=== PATIENT | male | born 1945 | race Two or more races ===

== ENCOUNTER → 2023-03-17 | Outpatient (CLI) | payer OTHER | END | disposition home or self-care (01) | LOC: LAB 12:20 | PROVIDERS: ATTEND Urology | DX: N40.1 Benign prostatic hyperplasia with lower urinary tract symptoms (principal) | CPT/HCPCS: 84153 ==

== ENCOUNTER 2023-08-25 08:37 | Inpatient (IN) | payer MEDICARE, OTHER ==
[2023-08-19 15:42] LABS: Basophils # (auto) 0.1 10 ^3/uL (0-0.2); Basophils % (auto) 0.9 % (0.0-2.0); Eosinophils # (auto) 0.3 10 ^3/uL (0-0.8); Eosinophils % (auto) 2.6 % (0.0-7.0); Hematocrit 46.7 % (41.0-53.0); Hemoglobin 15.7 g/dL (13.5-17.5); Lymphocytes # (auto) 1.4 10 ^3/uL (0.4-5.4); Lymphocytes % (auto) 12.5 % (10.0-50.0); Mean Corpuscular Hemoglobin 30.6 pg (28.0-32.0); Mean Corpuscular Hgb Conc. 33.7 g/dL (32.0-36.0); Monocytes # (auto) 1.5 10 ^3/uL (0-1.3); Monocytes % (auto) 14.1 % (0.0-12.0); Neutrophils # (auto) 7.6 10 ^3/uL (1.6-8.6); Neutrophils % (auto) 69.9 % (37.0-80.0); Nucleated Red Blood Cells % 0.1 %; Red Blood Cells 5.13 10^6/uL (4.5-5.90); Red Cell Distribution Width 13.5 % (11.8-14.3); White Blood Cell 10.9 10^3/uL (4.4-10.8)
[2023-08-19 15:52] LABS: INR 1.12 (0.9-1.15); Partial Thromboplastin Time 30.8 SEC (24.5-34.5); Prothrombin Time 11.7 sec (9.3-11.8)
[2023-08-19 16:06] LABS: Alanine Aminotransferase 33 U/L (7-40); Albumin 3.8 g/dL (3.2-4.8); Alkaline Phosphatase 174 U/L (46-116); Anion Gap 7 (5-15); Aspartate Aminotransferase 25 U/L (13-40); BUN/Creatinine Ratio 12.7 (10.0-20.0); Blood Urea Nitrogen 13 mg/dL (9-23); Calcium 9.6 mg/dL (8.7-10.4); Carbon Dioxide 26 mmol/L (20-30); Chloride 101 mmol/L (98-107); Glucose 386 mg/dL (74-106); Potassium 4.3 mmol/L (3.5-5.1); Sodium 134 mmol/L (136-145)
[2023-08-19 16:07] LABS: Bilirubin, Total 0.7 mg/dL (0.2-1.0); Total Protein 7.3 g/dL (5.7-8.2)
[2023-08-22 15:17] LABS: Urine Bacteria NONE SEEN /hpf (None Seen); Urine Blood 1+ /uL (Negative); Urine Budding Yeast LOADED /hpf (None Seen); Urine Clarity CLOUDY (Clear); Urine Color Yellow (Yellow); Urine Mucus FEW (None Seen); Urine Protein, UAD 1+ (Negative); Urine Specific Gravity 1.021 (1.001-1.035); Urine Urobilinogen Normal (Negative); Urine WBC 524 /hpf (0 - 3); Urine WBC Clumps PRESENT /hpf (None Seen); Urine pH 5.5 (5.0-8.0)
[~2023-08-25] VITALS: Ht 188 cm; Wt 100.8 kg
[~2023-08-25 08:37] MED LIST: ASPI81CH59 PO; ATOR20TA PO; BISA10SU45 RE; CARV3.1240 PO; CLON0.1T PO; CLOP75TA70 PO; DICL1GEL59 EX; FLEETMIN PR; INSU100I52 IJ; MAGN400S25 PO; MULT-1018 PO; ZOFR4T PO
[2023-08-25] MEDS ORDERED: PROPOFOL 10 MG/ML 20 ML IV ONE ×2 (09:00→11:00)
[2023-08-25] MEDS ORDERED: LIDOCAINE 2% (LOCAL ANESTH.) PF 5ml SDV ONE (09:00)
[2023-08-25] MEDS ORDERED: GLYCOPYRROLATE 0.2 MG/ML 1ML VIAL ONE (09:00)
[2023-08-25] MEDS ORDERED: DexAMETHasone SOD PHOS 10MG/1ML VIAL INJ ONE (09:00)
[2023-08-25] MEDS ORDERED: ONDANSETRON HCL 4 MG/2 ML VIAL ONE (09:00)
[2023-08-25] MEDS ORDERED: VANCOMYCIN HCL 1000 MG VL ONE (09:17)
[2023-08-25] MEDS ORDERED: ePHEDrine SULFATE 50 MG/ML AMP ONE (10:05)
[2023-08-25] MEDS ORDERED: SODIUM CHLORIDE LOCK 10 ML ONE (10:05)
[2023-08-25] MEDS ORDERED: fentaNYL CITRATE 100 MCG/2 ML VL ONE (11:03)
[2023-08-25] MEDS ORDERED: NITROGLYCERIN 0.4 MG SL TAB SL PRN (11:30)
[2023-08-25] MEDS ORDERED: VANCOMYCIN PER PHARMACY 0 MG IV SCH (11:30)
[2023-08-25] MEDS ORDERED: MORPHINE SULFATE INJ 2 MG/ml SYRG IV PRN (11:30)
[2023-08-25 11:37] VITALS: O2SAT 99
[2023-08-25] MEDS ORDERED: NALOXONE HCL 0.4 MG/ML VIAL IV PRN (11:45)
[2023-08-25] MEDS ORDERED: HYDROmorphone HCL 2 MG/ML VL/or syr IV PRN (11:45)
[2023-08-25] MEDS ORDERED: hydrALAZINE HCL 20 MG/ML VL IV PRN (11:45)
[2023-08-25] MEDS ORDERED: ePHEDrine SULFATE 50 MG/ML AMP IV PRN (11:45)
[2023-08-25] MEDS ORDERED: LABETALOL HCL 5 MG/ML 4ML SYRINGE IV PRN (11:45)
[2023-08-25] MEDS ORDERED: ONDANSETRON HCL 4 MG/2 ML VIAL IV PRN (11:45)
[2023-08-25] MEDS ORDERED: FLUMAZENIL 0.1 MG/ML INJ 10ML MDV IV PRN (11:45)
[2023-08-25] MEDS ORDERED: fentaNYL CITRATE 100 MCG/2 ML VL IV PRN (11:45)
[2023-08-25] MEDS ORDERED: DEXTROSE (50%) 50ML SYRG IV PRN (12:00)
[2023-08-25] MEDS: InsuLIN REG 1unit/0.01ml Soln (100units/ml) SC SCH ×3 (12:33→23:38)
[2023-08-25 16:08] VITALS: BP 124/52; PULSE 78; RESP 18; TEMP 98.2; O2SAT 96
[2023-08-25 16:32] VITALS: BP 104/46; PULSE 78; RESP 78; TEMP 98.2
[2023-08-25 17:00] VITALS: BP 104/46; PULSE 78; RESP 18; TEMP 98.2; O2SAT 94
[2023-08-25] MEDS: ACCU-CHEK COMFORT CURVE STRIP VI SCH ×2 (17:19→23:26)
[2023-08-25 19:00] VITALS: O2SAT 94
[2023-08-25 20:00] VITALS: O2SAT 94
[2023-08-25] MEDS ORDERED: VANCOMYCIN 1GM/200ML 250 ML IV SCH (21:00)
[2023-08-25] MEDS ORDERED: VANCOMYCIN 1GM/200ML 250 ML IV ONE ×2 (21:45→21:53)
[2023-08-25] MEDS: VANCOMYCIN 1GM/200ML 250 ML IV SCH (23:21)
[2023-08-26] MEDS ORDERED: InsuLIN REG 1unit/0.01ml Soln (100units/ml) IV ONE ×4 (01:45→06:00)
[2023-08-26] MEDS ORDERED: InsuLIN REG 1unit/0.01ml Soln (100units/ml) ONE ×2 (04:14→06:15)
[2023-08-26 05:00] VITALS: BP 135/65; PULSE 77; RESP 18; TEMP 98.4; O2SAT 94
[2023-08-26] MEDS: ACCU-CHEK COMFORT CURVE STRIP VI SCH ×4 (07:02→22:40)
[2023-08-26] MEDS: InsuLIN REG 1unit/0.01ml Soln (100units/ml) SC SCH ×4 (07:05→22:43)
[2023-08-26 08:00] VITALS: BP 134/55; PULSE 72; RESP 19; TEMP 97.7; O2SAT 90
[2023-08-26 09:00] VITALS: BP 134/55; PULSE 72; RESP 19; TEMP 97.7; O2SAT 90
[2023-08-26] MEDS: VANCOMYCIN 1GM/200ML 250 ML IV SCH ×2 (11:31→23:50)
[2023-08-26 13:00] VITALS: BP 157/68; PULSE 65; RESP 18; TEMP 98; O2SAT 92
[2023-08-26] MEDS ORDERED: CARVEDILOL 3.125 MG TAB PO ONE (16:00)
[2023-08-26] MEDS ORDERED: DEXTROSE (50%) 50ML SYRG IV PRN (16:00)
[2023-08-26 17:02] VITALS: BP 134/86; PULSE 60; RESP 18; TEMP 97.6; O2SAT 92
[2023-08-26] MEDS ORDERED: CARVEDILOL 3.125 MG TAB ONE ×2 (17:36→22:37)
[2023-08-26] MEDS ORDERED: INSULIN LANTUS (GLARGINE) 1 /0.01ml (100units/ml) SC ONE (22:36)
[2023-08-26] MEDS ORDERED: ATORVASTATIN 20 MG TAB ONE (22:37)
[2023-08-26] MEDS: ATORVASTATIN 20 MG TAB PO SCH (22:39)
[2023-08-26] MEDS: CARVEDILOL 3.125 MG TAB PO SCH (22:40)
[2023-08-26] MEDS: INSULIN LANTUS (GLARGINE) 1 /0.01ml (100units/ml) SC SCH (22:43)
[2023-08-26 23:22] VITALS: BP 133/61; PULSE 61; RESP 18; TEMP 98.4; O2SAT 93
[2023-08-27 05:35] VITALS: BP 123/69; PULSE 55; RESP 18; TEMP 98; O2SAT 93
[2023-08-27] MEDS: ACCU-CHEK COMFORT CURVE STRIP VI SCH ×4 (06:18→22:00)
[2023-08-27] MEDS: InsuLIN REG 1unit/0.01ml Soln (100units/ml) SC SCH ×4 (06:19→22:00)
[2023-08-27 07:12] LABS: Alanine Aminotransferase 32 U/L (7-40); Albumin 3.3 g/dL (3.2-4.8); Alkaline Phosphatase 138 U/L (46-116); Anion Gap 6 (5-15); Aspartate Aminotransferase 28 U/L (13-40); BUN/Creatinine Ratio 12.1 (10.0-20.0); Blood Urea Nitrogen 12 mg/dL (9-23); Calcium 9.2 mg/dL (8.5-10.1); Carbon Dioxide 27 mmol/L (20-30); Chloride 105 mmol/L (98-107); Glucose 236 mg/dL (74-106); Potassium 3.7 mmol/L (3.5-5.1); Sodium 138 mmol/L (136-145)
[2023-08-27 07:13] LABS: Bilirubin, Total 0.6 mg/dL (0.2-1.0); Total Protein 6.1 g/dL (5.7-8.2)
[2023-08-27] MEDS ORDERED: LORazepam 2MG/ML-1ML VIAL ONE ×3 (08:40→16:32)
[2023-08-27] MEDS ORDERED: LORazepam 2MG/ML-1ML VIAL IV ONE (08:45)
[2023-08-27] MEDS: CARVEDILOL 3.125 MG TAB PO SCH ×2 (10:00→22:00)
[2023-08-27] MEDS: VANCOMYCIN 1GM/200ML 250 ML IV SCH (11:30)
[2023-08-27] MEDS: LORazepam 2MG/ML-1ML VIAL IV PRN (16:47)
[2023-08-27] MEDS: INSULIN LANTUS (GLARGINE) 1 /0.01ml (100units/ml) SC SCH (22:00)
[2023-08-27] MEDS: ATORVASTATIN 20 MG TAB PO SCH (22:00)
[2023-08-28] MEDS ORDERED: LORazepam 2MG/ML-1ML VIAL ONE (00:36)
[2023-08-28] MEDS: VANCOMYCIN 1GM/200ML 250 ML IV SCH ×3 (00:42→23:30)
[2023-08-28] MEDS: LORazepam 2MG/ML-1ML VIAL IV PRN (00:43)
[2023-08-28 04:32] LABS: Urine Bacteria NONE SEEN /hpf (None Seen); Urine Blood 3+ /uL (Negative); Urine Clarity HAZY (Clear); Urine Color Yellow (Yellow); Urine Mucus FEW (None Seen); Urine Protein, UAD 2+ (Negative); Urine Urobilinogen Normal (Negative); Urine WBC 203 /hpf (0 - 3); Urine WBC Clumps PRESENT /hpf (None Seen)
[2023-08-28] MEDS: InsuLIN REG 1unit/0.01ml Soln (100units/ml) SC SCH ×4 (06:33→22:00)
[2023-08-28] MEDS: ACCU-CHEK COMFORT CURVE STRIP VI SCH ×4 (06:33→22:00)
[2023-08-28] MEDS: CARVEDILOL 3.125 MG TAB PO SCH ×2 (09:49→22:00)
[2023-08-28] MEDS ORDERED: HALOPERIDOL LACTATE 5 MG/ML INJ VIAL IM PRN (12:30)
[2023-08-28 20:00] VITALS: RESP 17
[2023-08-28 22:00] VITALS: RESP 18
[2023-08-28] MEDS: ATORVASTATIN 20 MG TAB PO SCH (22:00)
[2023-08-28] MEDS: INSULIN LANTUS (GLARGINE) 1 /0.01ml (100units/ml) SC SCH (22:00)
[2023-08-29 05:00] VITALS: RESP 18
[2023-08-29 08:48] VITALS: BP 143/74; PULSE 59; RESP 18; TEMP 98; O2SAT 95
[2023-08-29] MEDS: InsuLIN REG 1unit/0.01ml Soln (100units/ml) SC SCH ×4 (09:45→21:40)
[2023-08-29] MEDS: CARVEDILOL 3.125 MG TAB PO SCH ×2 (09:45→21:40)
[2023-08-29] MEDS: ACCU-CHEK COMFORT CURVE STRIP VI SCH ×4 (09:46→22:00)
[2023-08-29] MEDS: VANCOMYCIN 1GM/200ML 250 ML IV SCH ×2 (12:15→23:30)
[2023-08-29 13:00] VITALS: BP 130/76; PULSE 68; RESP 20; TEMP 98; O2SAT 97
[2023-08-29 16:00] LABS: Basophils # (auto) 0.1 10 ^3/uL (0-0.2); Basophils % (auto) 1.1 % (0.0-2.0); Eosinophils # (auto) 0.2 10 ^3/uL (0-0.8); Eosinophils % (auto) 2.7 % (0.0-7.0); Hematocrit 46.2 % (41.0-53.0); Hemoglobin 15.7 g/dL (13.5-17.5); Lymphocytes # (auto) 1.3 10 ^3/uL (0.4-5.4); Lymphocytes % (auto) 16.6 % (10.0-50.0); Mean Corpuscular Hemoglobin 30.3 pg (28.0-32.0); Mean Corpuscular Volume 89.2 fL (80.0-100.0); Monocytes # (auto) 1.4 10 ^3/uL (0-1.3); Neutrophils % (auto) 62.6 % (37.0-80.0); Nucleated Red Blood Cells % 0.3 %; Red Blood Cells 5.18 10^6/uL (4.5-5.90); Red Cell Distribution Width 13.4 % (11.8-14.3)
[2023-08-29 16:15] LABS: Chloride 106 mmol/L (98-107); Potassium 3.8 mmol/L (3.5-5.1); Sodium 139 mmol/L (136-145)
[2023-08-29 16:16] LABS: Anion Gap 5 (5-15); Carbon Dioxide 28 mmol/L (20-30)
[2023-08-29 16:21] LABS: Glucose 189 mg/dL (74-106)
[2023-08-29 16:22] LABS: BUN/Creatinine Ratio 10.6 (10.0-20.0); Blood Urea Nitrogen 10 mg/dL (9-23)
[2023-08-29 16:47] VITALS: BP 134/77; PULSE 96; RESP 18; TEMP 98; O2SAT 95
[2023-08-29] MEDS: INSULIN LANTUS (GLARGINE) 1 /0.01ml (100units/ml) SC SCH (21:40)
[2023-08-29] MEDS: ATORVASTATIN 20 MG TAB PO SCH (21:40)
[2023-08-29 21:45] VITALS: BP 146/75; PULSE 88; RESP 20; TEMP 98.2; O2SAT 94
[2023-08-30 04:47] VITALS: BP 129/68; PULSE 72; RESP 18; TEMP 98.1; O2SAT 96
[2023-08-30] MEDS: InsuLIN REG 1unit/0.01ml Soln (100units/ml) SC SCH ×3 (05:31→13:54)
[2023-08-30] MEDS: ACCU-CHEK COMFORT CURVE STRIP VI SCH ×3 (05:32→13:53)
[2023-08-30] MEDS ORDERED: HYDROcodone-ACET 5/325MG TAB PO PRN (08:15)
[2023-08-30] MEDS: CARVEDILOL 3.125 MG TAB PO SCH (08:54)
[2023-08-30 09:00] VITALS: BP 130/51; PULSE 61; RESP 16; TEMP 98.4; O2SAT 93
[2023-08-30] MEDS: VANCOMYCIN 1GM/200ML 250 ML IV SCH (11:30)
[2023-08-30 13:00] VITALS: BP 136/68; PULSE 62; RESP 16; TEMP 98.2; O2SAT 95
[2023-08-30 13:56] VITALS: BP 130/51; PULSE 61; RESP 18; TEMP 36.7; O2SAT 95
== END 2023-08-30 17:08 | DRG 713 ==
LOC: SUR 08:37 → OVERFLOW 11:32 → WEST WING 16:04
PROVIDERS: ADMIT Urology; ATTEND Internal Medicine
PROC: 0V508ZZ Destruction of Prostate, Via Natural or Artificial Opening Endoscopic (ICD-10-PCS; 2023-08-25)
PROC: 0VB08ZZ Excision of Prostate, Via Natural or Artificial Opening Endoscopic (ICD-10-PCS; principal; 2023-08-25 09:58)
DX: N40.1 Benign prostatic hyperplasia with lower urinary tract symptoms (principal); G93.41 Metabolic encephalopathy; N39.0 Urinary tract infection, site not specified; B95.2 Enterococcus as the cause of diseases classified elsewhere; E66.9 Obesity, unspecified; I10 Essential (primary) hypertension; E11.65 Type 2 diabetes mellitus with hyperglycemia; R33.8 Other retention of urine; E78.00 Pure hypercholesterolemia, unspecified; I25.10 Atherosclerotic heart disease of native coronary artery without angina pectoris; Z90.79 Acquired absence of other genital organ(s); Z87.891 Personal history of nicotine dependence; Z79.4 Long term (current) use of insulin; Z95.5 Presence of coronary angioplasty implant and graft; Z91.199 Patient's noncompliance with other medical treatment and regimen due to unspecified reason; Z68.28 Body mass index [BMI] 28.0-28.9, adult
CPT/HCPCS: 36415; 80048; 80053; 80202; 81001; 82565; 82962; 83036; 85025; 85610; 85730; 87081; 87086; 87088; 87186; 97110; 97116; 97163; 97530; G0378; J1100; J1815; J2001; J2405; J2704